=== PATIENT | female | born 1980 | race Caucasian/White ===

== ENCOUNTER 2016-08-16 09:53 | Emergency (ER) | payer MEDICAID ==
[2016-08-16 09:54] VITALS: BMI 41.1
[2016-08-16 10:01] VITALS: O2SAT 100
--- NOTE | 2016-08-16 10:56 | C.PDOC ---
History Of Present Illness 36 y/o female, with PMHx of DM and HTN, presents to ED with c/o headache bilateral temples associated with nausea. Patient also reports feeling dizzy sensation and photophobia. She reports gradual onset of symptoms since waking up this morning. Denies fever, chills, vomiting, or neck stiffness. Pt states she did not take any medication for symptoms. Time Seen by Provider: 08/16/16 10:05 Chief Complaint (Nursing): Dizziness/Lightheaded History Per: Patient History/Exam Limitations: no limitations Onset/Duration Of Symptoms: Gradual Current Symptoms Are (Timing): Still Present Quality: "Pain" Preceeding Symptoms: None Associated Symptoms: Photophobia, Nausea. denies: Vomiting, Extremity Weakness Recent travel outside of the [place]: No Past Medical History Reviewed: Historical Data, Nursing Documentation, Vital Signs Vital Signs: Last Vital Signs Temp 98.3 F 08/16/16 12:40 Pulse 86 08/16/16 12:40 Resp 18 08/16/16 12:40 BP 111/74 08/16/16 12:40 Pulse Ox 100 08/17/16 22:10 - Medical History PMH: Diabetes, HTN, Hyperlipidemia Surgical History: No Surg Hx Family History: States: Unknown Family Hx - Social History Hx Tobacco Use: No Hx Alcohol Use: No Hx Substance Use: No - Immunization History Hx Tetanus Toxoid Vaccination: No Hx Influenza Vaccination: No Hx Pneumococcal Vaccination: No Review Of Systems Except As Marked, All Systems Reviewed And Found Negative. Constitutional: Negative for: Fever, Chills Cardiovascular: Negative for: Chest Pain Respiratory: Negative for: Shortness of Breath Gastrointestinal: Positive for: Nausea. Negative for: Vomiting Musculoskeletal: Negative for: Neck Pain Neurological: Positive for: Headache, Dizziness. Negative for: Weakness, Numbness Physical Exam - Physical Exam Appears: Non-toxic, No Acute Distress Skin: Normal Color, Warm, Dry Head: Atraumatic, Normacephalic, Tenderness (bilateral temples) Eye(s): bilateral: Normal Inspection, PERRL, EOMI Chest: Symmetrical Cardiovascular: Rhythm Regular Respiratory: Normal Breath Sounds, No Rales, No Rhonchi, No Wheezing Gastrointestinal/Abdominal: Soft, No Tenderness, No Guarding, No Rebound Back: Normal Inspection Extremity: Normal ROM, Capillary Refill (< 2 sec. ) Neurological/Psych: Oriented x3, Normal Speech, Normal Cognition, Normal Cranial Nerves (intact), Normal Motor, Normal Sensation, Other (neuro intact, no focal deficits) ED Course And Treatment O2 Sat by Pulse Oximetry: 100 (RA) Pulse Ox Interpretation: Normal Medical Decision Making Medical Decision Making: Plan: * Reglan * Reassess Progress: 1255 pm pt reports headache and nausea resolved, feels much better. will d/c Disposition Counseled Patient/Family Regarding: Diagnosis, Need For Followup - Disposition [facility] [Outside] Disposition: HOME/ ROUTINE Disposition Time: 12:55 Condition: IMPROVED Additional Instructions: Follow up in clinic in a few days or with your doctor. Return to ER for any worsening symptoms. Instructions: Tension Headache (ED) Forms: Gen Discharge Inst Malian Print Language: MALAY - Clinical Impression Clinical Impression: Headache
[2016-08-16 12:47] VITALS: BP 111/74; PULSE 86; RESP 18; TEMP 98.3
== END 2016-08-16 12:59 | disposition home or self-care (01) ==
LOC: C.ER 09:53
DX: R51 Headache (principal)
CPT/HCPCS: 82948; 96365; 96375; 99285; J1885; J2765